=== PATIENT | female | born 1940 | race Caucasian/White ===

== ENCOUNTER 2019-11-05 10:50 | Emergency (ER) | payer MEDICARE ==
[~2019-11-05] VITALS: Ht 160 cm; Wt 80.0 kg
[2019-11-05 10:57] VITALS: BP 163/80
[2019-11-05] MEDS ORDERED: CEFD300C3 PO (12:28)
--- NOTE | 2019-11-05 12:33 | NUR ---
Patient refused flu swab. MD Betzy mcleod.
== END 2019-11-05 12:41 | disposition home or self-care (01) ==
LOC: ER 10:51
DX: J01.90 Acute sinusitis, unspecified (principal)
CPT/HCPCS: 99283